=== PATIENT | male | born 1975 | race African-American/Black ===

== ENCOUNTER 2020-04-30 14:45 | Emergency (ER) | payer OTHER ==
[~2020-04-30] VITALS: Ht 172.7 cm; Wt 78.0 kg
[2020-04-30] MEDS ORDERED: NALOXONE HCL 1 MG/ML 2ML VIAL IV ONE (15:15)
[2020-04-30 15:33] LABS: BASOPHILS % 0.6 % (0.0-2.0); EOSINOPHILS % 0.3 % (0.0-5.0); HEMATOCRIT. 36.2 % (42.0-52.0); LYMPHOCYTES % 25.5 % (20.0-50.0); MEAN CORPUSCULAR HEMOGLOBIN 31.8 pg (28.0-32.0); MEAN CORPUSCULAR VOLUME 95.9 fL (80.0-94.0); MEAN PLATELET VOLUME 7.2 fl (7.4-10.4); NEUTROPHILS % 67.6 % (40.0-76.0); PLATELET 202 x1000/uL (130-400); RED BLOOD CELL COUNT 3.78 mill/uL (4.7-6.1); RED CELL DISTRIBUTION WIDTH 16.2 % (11.6-14.6)
[2020-04-30 15:38] LABS: CHLORIDE 106 mEq/L (98-107)
[2020-04-30 15:42] LABS: ETHANOL BLOOD 151 mg/dL
[2020-04-30 19:59] LABS: CLARITY URINE CLEAR (CLEAR); COLOR URINE YELLOW (YELLOW); KETONES URINE NEGATIVE (NEGATIVE); LEUKOCYTE ESTERASE URINE NEGATIVE (NEGATIVE); NITRITE URINE NEGATIVE (NEGATIVE); OCCULT BLOOD URINE NEGATIVE (NEGATIVE); PH URINE 5.5 (4.5-8.0); PROTEIN URINE 1+ (NEGATIVE); SPECIFIC GRAVITY URINE 1.028 (1.005-1.030)
[2020-04-30 20:10] LABS: *BARBITURATES SCREEN URINE NEGATIVE (NEGATIVE)
[2020-04-30 20:11] LABS: *AMPHETAMINES SCREEN URINE NEGATIVE (NEGATIVE); *BENZODIAZEPINES SCREEN URINE NEGATIVE (NEGATIVE); *COCAINE SCREEN URINE NEGATIVE (NEGATIVE); CANNABINOID URINE SCREEN PRESUMTIVE POSITIVE (NEGATIVE); METHADONE URINE SCREEN NEGATIVE (NEGATIVE); OPIATES URINE SCREEN NEGATIVE (NEGATIVE); PHENCYCLIDINE URINE SCREEN NEGATIVE (NEGATIVE)
[2020-05-01 00:49] VITALS: BP 114/68
== END 2020-05-01 00:54 | disposition home or self-care (01) ==
LOC: ER 14:45
DX: F10.129 Alcohol abuse with intoxication, unspecified (principal); F12.129 Cannabis abuse with intoxication, unspecified; Y90.6 Blood alcohol level of 120-199 mg/100 ml
CPT/HCPCS: 36415; 71045; 80053; 80305; 80320; 81003; 82962; 85025; 93005; 96374; 99285; J2310; G0480

== ENCOUNTER 2020-05-23 06:34 | Emergency (ER) | payer OTHER ==
[~2020-05-23] VITALS: Ht 175.3 cm; Wt 73.0 kg
[2020-05-23 08:00] LABS: BASOPHILS % 0.9 % (0.0-2.0); HEMATOCRIT. 35.6 % (42.0-52.0); HEMOGLOBIN. 11.9 g/dL (14.0-18.0); MEAN PLATELET VOLUME 8.3 fl (7.4-10.4); MONOCYTES % 5.4 % (2.0-8.0); NEUTROPHILS % 77.7 % (40.0-76.0); PLATELET 215 x1000/uL (130-400); RED BLOOD CELL COUNT 3.71 mill/uL (4.7-6.1); RED CELL DISTRIBUTION WIDTH 16.3 % (11.6-14.6)
[2020-05-23] MEDS ORDERED: SODIUM CHLORIDE 0.9% 1,000 ML IV ONE (08:00)
[2020-05-23 08:05] LABS: CHLORIDE 103 mEq/L (98-107)
[2020-05-23 08:10] LABS: ETHANOL BLOOD < 10 mg/dL
[2020-05-23] MEDS ORDERED: ASPIRIN 81MG TABLET PO NR (13:00)
[2020-05-23] MEDS ORDERED: FUROSEMIDE 40MG/4ML VIAL IVP NR (13:00)
[2020-05-23] MEDS ORDERED: DOXYCYCLINE HYCLATE 100MG CAPSULE PO NR (13:00)
[2020-05-23] MEDS ORDERED: CEFTRIAXONE 1 G PREMIX 50 ML IV NR (13:00)
[2020-05-23] MEDS ORDERED: DEXAMETHASONE 10 MG/ML VIAL IV NR (13:15)
[2020-05-23 18:32] LABS: KETONES URINE TRACE (NEGATIVE); LEUKOCYTE ESTERASE URINE NEGATIVE (NEGATIVE); NITRITE URINE NEGATIVE (NEGATIVE); OCCULT BLOOD URINE NEGATIVE (NEGATIVE); PROTEIN URINE 1+ (NEGATIVE); SPECIFIC GRAVITY URINE 1.022 (1.005-1.030)
[2020-05-23 18:33] LABS: COLOR URINE DARK YELLOW (YELLOW)
[2020-05-23 18:34] LABS: CLARITY URINE SLIGHTLY HAZY (CLEAR)
[2020-05-23 19:33] LABS: *AMPHETAMINES SCREEN URINE NEGATIVE (NEGATIVE); *BARBITURATES SCREEN URINE NEGATIVE (NEGATIVE); *BENZODIAZEPINES SCREEN URINE NEGATIVE (NEGATIVE); *COCAINE SCREEN URINE NEGATIVE (NEGATIVE)
[2020-05-23 19:34] LABS: METHADONE URINE SCREEN NEGATIVE (NEGATIVE)
[2020-05-23 19:35] LABS: OPIATES URINE SCREEN NEGATIVE (NEGATIVE)
[2020-05-23 19:36] LABS: CANNABINOID URINE SCREEN PRESUMTIVE POSITIVE (NEGATIVE)
[2020-05-23 19:42] LABS: PHENCYCLIDINE URINE SCREEN NEGATIVE (NEGATIVE)
[2020-05-23 21:17] VITALS: BP 128/62
== END 2020-05-23 21:19 | disposition short-term general hospital (02) ==
LOC: ER 06:52
DX: T65.92XA Toxic effect of unspecified substance, intentional self-harm, initial encounter (principal); I10 Essential (primary) hypertension; F12.10 Cannabis abuse, uncomplicated; Z20.828 Contact with and (suspected) exposure to other viral communicable diseases; Y92.9 Unspecified place or not applicable
CPT/HCPCS: 36415; 71045; 80053; 80305; 80307; 80320; 80329; 81003; 83605; 83735; 83880; 84484; 85025; 87040; 87086; 87426; 87635; 93005; 96361; 96365; 96375; 99285; J0696; J1100; J1940; J7030; Z7610; G0480